=== PATIENT | male | born 1995 | race Caucasian/White ===

== ENCOUNTER 2017-11-30 14:55 | Emergency (ER) | payer OTHER ==
--- NOTE | 2017-11-30 15:04 | PDOC ---
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 Patient states he had similar symptoms 3 weeks ago, was prescribed augmentin which he took for one week and then stopped taking it because he started feeling better. Patient noticed the symptoms again this past week which worsened last night. Patient was seen at an urgent care today and was prompted to go to the ER for further evaluation The patient denies chest pain, shortness of breath, headache, and dizziness. Denies fever, chills, nausea, vomit, diarrhea, and constipation. Denies dysuria, frequency, urgency, and hematuria. Allergies: NKA Past surgical history: open heart surgeries, cardiac cath Social history: Drinks socially. No reported drug or cigarette use. <Marivel Franks - Last Filed: 11/30/17 15:12> - General History Source: Patient Exam Limitations: No Limitations <Claire Montes De Oca - Last Filed: 11/30/17 16:15> - General Chief Complaint: Respiratory Stated Complaint: COUGH, NASAL CONGESTION Time Seen by Provider: 11/30/17 15:02 Past History <Marivel Franks - Last Filed: 11/30/17 15:12> <Claire Montes De Oca - Last Filed: 11/30/17 16:15> - Past Medical History Allergies/Adverse Reactions: Allergies Allergy/AdvReac Type Severity Reaction Status Date / Time No Known Allergies Allergy Verified 11/30/17 14:59 Home Medications: Ambulatory Orders Amoxicillin/Potassium Clav [Augmentin 875-125 Tablet] 1 each PO BID #20 tablet 11/30/17 Aspirin [Aspirin EC] 81 mg PO DAILY 11/30/17 Guaifenesin [Mucinex -] 600 mg PO BID #14 tablet.er 11/30/17 Pseudoephedrine HCl [Sudafed] 60 mg PO Q6H PRN #30 tablet 11/30/17 Review of Systems - Review of Systems Able to Perform ROS?: Yes Comments:: 11/30/17 15:13 ADULT ROS GENERAL/CONSTITUTIONAL: No fever or chills. No weakness. HEAD, EYES, EARS, NOSE AND THROAT: No change in vision. No ear pain or discharge. No sore throat. CARDIOVASCULAR: No chest pain or shortness of breath. RESPIRATORY: No cough, wheezing, or hemoptysis. (+) Congestion. (+) Cough. GASTROINTESTINAL: No nausea, vomiting, diarrhea or constipation. GENITOURINARY: No dysuria, frequency, or change in urination. MUSCULOSKELETAL: No joint or muscle swelling or pain. No neck or back pain. SKIN: No rash NEUROLOGIC: No headache, vertigo, loss of consciousness, or change in strength/ sensation. ENDOCRINE: No increased thirst. No abnormal weight change. HEMATOLOGIC/LYMPHATIC: No anemia, easy bleeding, or history of blood clots. ALLERGIC/IMMUNOLOGIC: No hives or skin allergy. <Marivel Franks - Last Filed: 11/30/17 15:12> *Physical Exam - Vital Signs Last Vital Signs Temp Pulse Resp BP Pulse Ox 98.7 F 96 H 18 137/90 90 L 11/30/17 14:55 11/30/17 14:55 11/30/17 14:55 11/30/17 14:55 11/30/17 14:55 - Physical Exam Comments: 11/30/17 15:07 ADULT PE GENERAL: The patient is in no acute distress. HEAD: Normal with no signs of trauma. EYES: PERRLA, EOMI, sclera anicteric, conjunctiva clear. ENT: Ears normal, nares patent, oropharynx clear without exudates. TMs are normal. Moist mucous membranes. NECK: Normal range of motion, supple without lymphadenopathy, JVD, or masses. LUNGS: Breath sounds equal, clear to auscultation bilaterally. No wheezes, and no crackles. HEART:Regular rate and rhythm, normal S1 and S2 without murmur, rub or gallop. ABDOMEN: Soft, nontender, normoactive bowel sounds. No guarding, no rebound. No masses palpable. EXTREMITIES: Normal range of motion, no edema. No clubbing or cyanosis. No erythema, or tenderness. NEUROLOGICAL: Cranial nerves II through XII grossly intact. Normal speech. No focal neurological deficits. MUSCULOSKELETAL: Back non-tender to palpation, no CVA tenderness SKIN: Warm, Dry, normal turgor, no rashes or lesions noted. <Marivel Franks - Last Filed: 11/30/17 15:12> ED Treatment Course - LABORATORY CBC & Chemistry Diagram: 11/30/17 15:15 11/30/17 15:15 <Claire Montes De Oca - Last Filed: 11/30/17 16:15> Medical Decision Making - Medical Decision Making 11/30/17 16:10 Laboratory Tests 11/30/17 11/30/17 11/30/17 15:15 15:15 15:15 WBC 7.7 Hgb 15.7 Hct 46.8 Plt Count 182 Creatine Kinase 50 Troponin I < 0.03 CXR: nml, no infiltrates, no consolidation Will discharge to home on Augmentin Follow up with PMD Clinical impression: sinusitis, initial presentation <Claire Montes De Oca - Last Filed: 11/30/17 16:15> *DC/Admit/Observation/Transfer - Attestations Scribe Attestion: 11/30/17 15:24 Documentation prepared by Marivel Franks, acting as medical screener for Claire Montes De Oca MD. <Marivel Franks - Last Filed: 11/30/17 15:12> - Discharge Dispostion Decision to Admit order: No <Claire Montes De Oca - Last Filed: 11/30/17 16:15> Diagnosis at time of Disposition: Sinusitis Qualifiers: Sinusitis location: frontal Chronicity: acute Recurrence: recurrent Qualified Code(s): J01.11 - Acute recurrent frontal sinusitis - Discharge Dispostion Disposition: HOME Condition at time of disposition: Stable - Prescriptions Prescriptions: Amoxicillin/Potassium Clav [Augmentin 875-125 Tablet] 1 each PO BID #20 tablet - Patient Instructions Printed Discharge Instructions: DI for Sinusitis, Sinusitis (Alternative Therapy) Additional Instructions: [place] Thank you for coming into the emergency department today. Please take medications as prescribed. Please monitor herself for fevers by taking her temperature. Please review medications with your computer forensics analyst or cardiac surgeon. Please return to emergency department immediately for any other concerns or complaints. - Post Discharge Activity Forms/Work/School Notes: Back to School
[2017-11-30 15:06] VITALS: BP 137/90; PULSE 96; TEMP 98.7; BMI 25.0
[2017-11-30 15:48] LABS: EOS % 1.6 % (0-4.5)
[2017-11-30 15:51] LABS: HEMATOCRIT 46.8 % (35.4-49); HEMOGLOBIN 15.7 GM/dl (11.7-16.9); LYMPH % 8.2 % (8-40); MCH 30.9 pg (25.7-33.7); MCHC 33.5 g/dl (32.0-35.9); MEAN CELL VOLUME 92.4 fl (80-96); MEAN PLT VOLUME 10.1 fl (7.5-11.1); MONO % 4.6 % (3.8-10.2); NEUT % 84.6 % (42.8-82.8); PLATELET COUNT 182 K/MM3 (134-434); RBC 5.06 M/mm3 (4.00-5.60); RDW 12.5 % (11.9-15.9); WHITE BLOOD COUNT 7.7 K/mm3 (4.0-10.8)
[2017-11-30 15:52] LABS: ALBUMIN 4.5 g/dl (3.5-5.0); ALK PHOS 66 U/L (32-92); ANION GAP 5 MMOL/L (8-16); BILIRUBIN,TOTAL 1.1 mg/dl (0.2-1.0); BLOOD UREA NITROGEN 10 mg/dl (7-18); CALCIUM 9.4 mg/dl (8.4-10.2); CHLORIDE 109 mmol/L (98-107); CO2 24 mmol/L (22-28); CREATININE 0.8 mg/dl (0.6-1.3); GLUCOSE,RANDOM 105 mg/dl (74-106); POTASSIUM 3.9 mmol/L (3.5-5.1); SGOT/AST 17 U/L (10-42); SGPT/ALT 20 U/L (10-40); SODIUM 138 mmol/L (136-145); TOT PROT 7.6 g/dl (6.4-8.3)
== END 2017-11-30 16:30 | disposition home or self-care (01) ==
LOC: FER 14:55
DX: J01.11 Acute recurrent frontal sinusitis (principal); Q23.4 Hypoplastic left heart syndrome
CPT/HCPCS: 36415; 71046-TC-FY; 80053; 82550; 84484; 85025; 87070; 87430; 99284-25